=== PATIENT | male | born 1985 | race Caucasian/White ===

== ENCOUNTER 2016-01-10 09:33 | Inpatient (IN) | payer MEDICARE, MEDICAID ==
[~2016-01-10] VITALS: Ht 167.6 cm; Wt 143.9 kg
[~2016-01-10 09:33] MED LIST: ADVIL200 MG PO; FLEXERIL 1010 MG/TAB PO; FLONASEALLERGY NS; HCTZ12.5TAB PO; PRINIVIL10 MG PO; PRINIVIL2.5 MG PO
[2016-02-27] VITALS (12 sets, daily range): BP systolic 100–144; BP diastolic 53–88; PULSE 62–99; TEMP 97.4–97.8
[2016-02-27] MEDS ORDERED: HCTZ 25MG TAB25 MG PO (07:15)
[2016-02-28 02:25] VITALS: BP 133/73; PULSE 67
[2016-02-28 05:12] VITALS: BP 117/51; PULSE 66; TEMP 98.5
[2016-02-28 08:53] VITALS: BP 125/64; PULSE 72; TEMP 98.4
[2016-02-28 14:09] VITALS: BP 125/66; PULSE 64; TEMP 98.2
[2016-03-31] MEDS ORDERED: FLINTSTONES1 CTB PO (14:23)
== END 2016-02-28 17:46 | disposition home or self-care (01) | DRG 621 ==
LOC: INPTSU 02-27 05:50 → SURG 02-27 07:30 → JCC 02-27 10:25
PROVIDERS: Surgery
PROC: 0DB64Z3 Excision of Stomach, Percutaneous Endoscopic Approach, Vertical (ICD-10-PCS; 2016-02-27)
PROC: 0DV64CZ Restriction of Stomach with Extraluminal Device, Percutaneous Endoscopic Approach (ICD-10-PCS; principal; 2016-02-27 08:00)
DX: E66.01 Morbid (severe) obesity due to excess calories (principal); Z68.43 Body mass index [BMI] 50.0-59.9, adult; I10 Essential (primary) hypertension; G47.33 Obstructive sleep apnea (adult) (pediatric)
CPT/HCPCS: A9284; J0330; J0690; J1100; J1170; J1885; J2405; J2550; J2704; J2710; J3010; J7042; J7120

== ENCOUNTER 2016-02-26 03:57 | Emergency (ER) | payer MEDICARE, MEDICAID ==
[~2016-02-26] VITALS: Ht 167.6 cm; Wt 143.2 kg
[2016-02-26 04:00] VITALS: TEMP 98.8
[2016-02-26 05:08] VITALS: BP 131/64; PULSE 102
[2016-02-27] MEDS ORDERED: HCTZ 25MG TAB25 MG PO (07:15)
[2016-03-31] MEDS ORDERED: FLINTSTONES1 CTB PO (14:23)
== END 2016-02-26 05:15 | disposition home or self-care (01) ==
LOC: COL.ER 03:57
DX: M79.671 Pain in right foot (principal); I10 Essential (primary) hypertension; E66.9 Obesity, unspecified; Z68.43 Body mass index [BMI] 50.0-59.9, adult
CPT/HCPCS: J1170

== ENCOUNTER → 2016-03-03 | Outpatient (CLI) | payer MEDICARE, MEDICAID ==
[~2016-03-03] VITALS: Ht 167.6 cm; Wt 134.5 kg
[~2016-03-03] MED LIST changes: +ANECREAM15 TOP; +CLEOCIN HCL300 MG PO; +FLINTSTONES1 CTB PO; +HCTZ 25MG TAB25 MG PO; +PREDNISONE20 MG PO; +RECTIV0.4% RC
[2016-03-03 13:33] VITALS: BP 90/60; PULSE 100
[2016-03-03 14:12] VITALS: BP 90/60; PULSE 100
[2016-03-06 12:02] VITALS: BP 106/60; PULSE 100
[2016-03-10 12:12] VITALS: BP 113/64; PULSE 63
[2016-03-24 11:57] VITALS: BP 131/66; PULSE 71
== END ==
LOC: LIGHT 13:30
DX: Z98.84 Bariatric surgery status (principal); Z68.42 Body mass index [BMI] 45.0-49.9, adult

== ENCOUNTER → 2016-03-18 | Outpatient (CLI) | payer MEDICARE, MEDICAID | LOC: COL.RAD 15:31 | DX: R10.32 Left lower quadrant pain (principal) ==

== ENCOUNTER → 2016-03-31 | Outpatient (CLI) | payer MEDICARE, MEDICAID ==
[~2016-03-31] VITALS: Ht 167.6 cm; Wt 127.5 kg
[2016-03-31 14:24] VITALS: BP 132/68; PULSE 88
[2016-03-31 14:46] VITALS: BP 132/68; PULSE 88
[2016-04-07 10:50] VITALS: BP 123/70; PULSE 61
[2016-04-14 10:57] VITALS: BP 121/62; PULSE 66
== END ==
LOC: LIGHT 09:39
DX: Z98.84 Bariatric surgery status (principal); Z68.42 Body mass index [BMI] 45.0-49.9, adult

== ENCOUNTER 2016-04-20 20:07 | Emergency (ER) | payer MEDICARE, MEDICAID ==
[~2016-04-20] VITALS: Ht 167.6 cm; Wt 127.7 kg
[~2016-04-20 20:07] MED LIST changes: -ANECREAM15 TOP; -CLEOCIN HCL300 MG PO; -PREDNISONE20 MG PO; -RECTIV0.4% RC
[2016-04-20 20:09] VITALS: BP 117/70; TEMP 99
[2016-04-20 21:50] VITALS: PULSE 96
== END 2016-04-20 21:51 | disposition home or self-care (01) ==
LOC: COL.ER 20:07
DX: M79.672 Pain in left foot (principal); E66.01 Morbid (severe) obesity due to excess calories; Z68.42 Body mass index [BMI] 45.0-49.9, adult; I10 Essential (primary) hypertension

== ENCOUNTER → 2016-05-01 | Outpatient (CLI) | payer MEDICARE, MEDICAID ==
[~2016-05-01] VITALS: Ht 167.6 cm; Wt 123.6 kg
[~2016-05-01] MED LIST changes: +ANECREAM15 TOP; +CLEOCIN HCL300 MG PO; +PREDNISONE20 MG PO; +RECTIV0.4% RC
[2016-05-01 08:47] VITALS: BP 124/66; PULSE 55
[2016-05-19 13:43] VITALS: BP 112/55; PULSE 61
== END ==
LOC: LIGHT 08:40
DX: E88.81 Metabolic syndrome and other insulin resistance (principal); I10 Essential (primary) hypertension; R73.01 Impaired fasting glucose; E66.01 Morbid (severe) obesity due to excess calories; Z68.41 Body mass index [BMI] 40.0-44.9, adult

== ENCOUNTER → 2016-05-26 | Outpatient (CLI) | payer MEDICARE, MEDICAID ==
[~2016-05-26] VITALS: Ht 167.6 cm; Wt 113.9 kg
[2016-05-26 14:08] VITALS: BP 90/50; PULSE 64
[2016-06-09 10:40] VITALS: BP 133/62; PULSE 68
[2016-07-23 13:47] VITALS: BP 108/58; PULSE 64
[2016-08-19 11:53] VITALS: BP 119/62; PULSE 61
== END ==
LOC: LIGHT 14:00
DX: E88.81 Metabolic syndrome and other insulin resistance (principal); I10 Essential (primary) hypertension; E66.01 Morbid (severe) obesity due to excess calories; Z68.41 Body mass index [BMI] 40.0-44.9, adult; Z98.84 Bariatric surgery status; Z90.49 Acquired absence of other specified parts of digestive tract

== ENCOUNTER 2016-07-05 16:28 | Emergency (ER) | payer MEDICARE, MEDICAID ==
[~2016-07-05] VITALS: Ht 167.6 cm; Wt 116.4 kg
[~2016-07-05 16:28] MED LIST changes: -ANECREAM15 TOP; -CLEOCIN HCL300 MG PO; -PREDNISONE20 MG PO; -RECTIV0.4% RC
[2016-07-05 16:30] VITALS: TEMP 99.8
[2016-07-05] MEDS ORDERED: PREDNISONE20 MG PO (17:54)
[2016-07-05] MEDS ORDERED: CLEOCIN HCL300 MG PO (17:54)
[2016-07-05 18:04] VITALS: BP 120/65; PULSE 72
== END 2016-07-05 18:06 | disposition home or self-care (01) ==
LOC: COL.ER 16:28
DX: J03.90 Acute tonsillitis, unspecified (principal); H92.03 Otalgia, bilateral
CPT/HCPCS: J7512

== ENCOUNTER 2016-08-24 14:53 | Emergency (ER) | payer MEDICARE, MEDICAID ==
[~2016-08-24] VITALS: Ht 167.6 cm; Wt 114.1 kg
[~2016-08-24 14:53] MED LIST changes: +CLEOCIN HCL300 MG PO; +PREDNISONE20 MG PO
[2016-08-24 15:01] VITALS: BP 142/78; TEMP 98
[2016-08-24 15:48] LABS: BASO % 0.4 % (0.0-2.0); EOS # 0.1 (0.0-0.7); EOS % 1.8 % (0-4.0); GRAN # 3.9 (1.4-6.5); GRAN % 57.5 % (42.2-75.2); HEMATOCRIT 42.9 % (42.0-52.0); HEMOGLOBIN 14.5 g/dl (13.5-18.0); LYMPH # 2.1 (1.2-3.4); LYMPH % 31.4 % (20.0-51.0); MEAN CELL VOLUME 86 fl (80.0-100.0); MEAN CORPUSCULAR HEMOGLOBIN 29 pg (27.0-31.0); MEAN CORPUSCULAR HGB CONC 34 g/dl (33.0-37.0); MEAN PLATELET VOLUME 11.1 fl (7.4-10.4); MONO # 0.6 (0.1-0.6); MONO % 8.8 % (1.7-9.3); PLATELET COUNT 149 K/mm3 (130-400); RED BLOOD COUNT 4.97 M/mm3 (4.20-5.60); REDCELL DISTRIBUTION WIDTH-CV 15.5 % (11.5-14.5); WHITE BLOOD COUNT 6.8 K/mm3 (4.8-10.8)
[2016-08-24 16:01] LABS: ADJUSTED CALCIUM 9.3 mg/dL (8.4-10.2); ALANINE AMINOTRANSFERASE 30 U/L (21-72); ALBUMIN 3.9 gm/dL (3.5-5.0); ALKALINE PHOSPHATASE 68 U/L (50-136); ANION GAP 10 mmol/L (7-16); BILIRUBIN,TOTAL 0.6 mg/dL (0.0-1.0); BLOOD UREA NITROGEN 14 mg/dL (9-20); CALCIUM 9.2 mg/dL (8.4-10.2); CARBON DIOXIDE 27 mmol/L (22-30); CHLORIDE 102 mmol/L (98-107); GLUCOSE 100 mg/dL (74-106); POTASSIUM 3.7 mmol/L (3.4-5.0); SODIUM 139 mmol/L (137-145); TOTAL PROTEIN 7.2 gm/dL (6.4-8.2)
[2016-08-24 16:02] LABS: ACETAMINOPHEN < 10 ug/mL (10-30); SALICYLATE < 1.0 mg/dL
[2016-08-24 16:29] LABS: THYROXINE (T4)-TOTAL 6.1 ug/dL (5.5-11.0)
[2016-08-24 16:36] LABS: AMPHETAMINE URINE NEGATIVE; BARBITURATES URINE NEGATIVE; BENZODIAZEPINES URINE NEGATIVE; BUPRENORPHINE URINE NEGATIVE; METHADONE URINE NEGATIVE; OPIATES URINE NEGATIVE; OXYCODONE URINE NEGATIVE; PHENCYCLIDINE URINE NEGATIVE; PROPOXYPHENE URINE NEGATIVE; THC CANNABINOIDS URINE NEGATIVE
[2016-08-24 17:32] VITALS: PULSE 58
== END 2016-08-24 17:35 | disposition home or self-care (01) ==
LOC: COL.ER 14:53
PROVIDERS: Emergency Medicine
DX: F32.9 Major depressive disorder, single episode, unspecified (principal); I10 Essential (primary) hypertension; M19.90 Unspecified osteoarthritis, unspecified site; Z98.890 Other specified postprocedural states

== ENCOUNTER → 2016-09-01 | Outpatient (CLI) | payer MEDICARE, MEDICAID ==
[~2016-09-01] VITALS: Ht 167.6 cm; Wt 113.6 kg
[~2016-09-01] MED LIST changes: +ANECREAM15 TOP; +RECTIV0.4% RC
[2016-09-01 14:07] VITALS: BP 114/56; PULSE 60
== END ==
LOC: LIGHT 08:39
DX: E88.81 Metabolic syndrome and other insulin resistance (principal); I10 Essential (primary) hypertension; E66.01 Morbid (severe) obesity due to excess calories; Z68.41 Body mass index [BMI] 40.0-44.9, adult; Z71.3 Dietary counseling and surveillance

== ENCOUNTER 2016-09-29 21:40 | Emergency (ER) | payer OTHER, MEDICARE, MEDICAID ==
[~2016-09-29] VITALS: Ht 167.6 cm; Wt 115.0 kg
[~2016-09-29 21:40] MED LIST changes: -ANECREAM15 TOP; -RECTIV0.4% RC
[2016-09-29 21:45] VITALS: TEMP 98.6
[2016-09-30] MEDS ORDERED: FLEXERIL 1010 MG/TAB PO (00:33)
[2016-09-30 00:41] VITALS: BP 111/63; PULSE 62
== END 2016-09-30 00:43 | disposition home or self-care (01) ==
LOC: COL.ER 21:40
DX: S16.1XXA Strain of muscle, fascia and tendon at neck level, initial encounter (principal); I10 Essential (primary) hypertension; V43.52XA Car driver injured in collision with other type car in traffic accident, initial encounter

== ENCOUNTER → 2016-10-09 | Outpatient (CLI) | payer OTHER, MEDICARE, MEDICAID ==
[~2016-10-09] VITALS: Ht 167.6 cm; Wt 114.5 kg
[~2016-10-09] MED LIST changes: +ANECREAM15 TOP; +RECTIV0.4% RC
[2016-10-09 11:59] VITALS: BP 104/60; PULSE 76
[2016-11-03 12:25] VITALS: BP 134/60; PULSE 64
== END ==
LOC: LIGHT 11:45
DX: E88.81 Metabolic syndrome and other insulin resistance (principal); I10 Essential (primary) hypertension; E66.01 Morbid (severe) obesity due to excess calories; Z68.39 Body mass index [BMI] 39.0-39.9, adult; Z71.3 Dietary counseling and surveillance

== ENCOUNTER 2016-11-07 07:54 | Emergency (ER) | payer MEDICARE, MEDICAID ==
[~2016-11-07] VITALS: Ht 167.6 cm; Wt 115.0 kg
[~2016-11-07 07:54] MED LIST changes: -ANECREAM15 TOP; -RECTIV0.4% RC
[2016-11-07 07:59] VITALS: BP 125/70; PULSE 70; TEMP 98.1
[2016-11-07] MEDS ORDERED: RECTIV0.4% RC (08:57)
[2016-11-07] MEDS ORDERED: ANECREAM15 TOP (09:11)
== END 2016-11-07 09:50 | disposition home or self-care (01) ==
LOC: COL.ER 07:54
DX: K62.89 Other specified diseases of anus and rectum (principal); K60.2 Anal fissure, unspecified; Z98.84 Bariatric surgery status

== ENCOUNTER 2016-12-11 01:22 | Emergency (ER) | payer MEDICARE, MEDICAID ==
[~2016-12-11] VITALS: Ht 167.6 cm; Wt 114.5 kg
[~2016-12-11 01:22] MED LIST changes: +ANECREAM15 TOP; +RECTIV0.4% RC
[2016-12-11 01:24] VITALS: BP 124/58; TEMP 97.8
[2016-12-11] MEDS ORDERED: FLONASEALLERGY NS (01:27)
[2016-12-11 02:03] VITALS: PULSE 74
== END 2016-12-11 02:03 | disposition home or self-care (01) ==
LOC: COL.ER 01:22
DX: J06.9 Acute upper respiratory infection, unspecified (principal); I10 Essential (primary) hypertension

== ENCOUNTER → 2016-12-18 | Outpatient (CLI) | payer MEDICARE, MEDICAID ==
[~2016-12-18] VITALS: Ht 167.6 cm; Wt 114.3 kg
[~2016-12-18] MED LIST changes: +PHENTERMINE15 MG PO
[2016-12-18 13:22] VITALS: BP 104/68; PULSE 64
== END ==
LOC: LIGHT 09:54
DX: E88.81 Metabolic syndrome and other insulin resistance (principal); I10 Essential (primary) hypertension; E66.01 Morbid (severe) obesity due to excess calories; Z68.41 Body mass index [BMI] 40.0-44.9, adult; Z71.3 Dietary counseling and surveillance

== ENCOUNTER → 2017-01-22 | Outpatient (CLI) | payer MEDICARE, MEDICAID ==
[~2017-01-22] VITALS: Ht 167.6 cm; Wt 125.0 kg
[2017-01-22 10:41] VITALS: BP 110/80; PULSE 68
== END ==
LOC: LIGHT 10:35
DX: E88.81 Metabolic syndrome and other insulin resistance (principal); I10 Essential (primary) hypertension; E66.01 Morbid (severe) obesity due to excess calories; Z68.41 Body mass index [BMI] 40.0-44.9, adult; Z71.3 Dietary counseling and surveillance

== ENCOUNTER → 2017-02-02 | Outpatient (CLI) | payer MEDICARE, MEDICAID ==
[~2017-02-02] VITALS: Ht 167.6 cm; Wt 116.6 kg
[2017-02-02 14:18] VITALS: BP 126/70; PULSE 80
== END ==
LOC: LIGHT 08:58
DX: E88.81 Metabolic syndrome and other insulin resistance (principal); I10 Essential (primary) hypertension; E66.01 Morbid (severe) obesity due to excess calories; Z68.41 Body mass index [BMI] 40.0-44.9, adult; Z71.3 Dietary counseling and surveillance

== ENCOUNTER → 2017-02-19 | Outpatient (CLI) | payer MEDICARE, MEDICAID ==
[~2017-02-19] VITALS: Ht 167.6 cm; Wt 115.2 kg
[2017-02-19 13:39] VITALS: BP 110/80; PULSE 104
== END ==
LOC: LIGHT 12:42
DX: E88.81 Metabolic syndrome and other insulin resistance (principal); I10 Essential (primary) hypertension; E66.01 Morbid (severe) obesity due to excess calories; Z68.41 Body mass index [BMI] 40.0-44.9, adult; Z71.3 Dietary counseling and surveillance
CPT/HCPCS: G0463

== ENCOUNTER → 2017-08-17 | Outpatient (CLI) | payer MEDICARE, MEDICAID ==
[~2017-08-17] VITALS: Ht 167.6 cm; Wt 121.1 kg
[2017-08-17 13:02] VITALS: BP 116/70; PULSE 92
== END ==
LOC: LIGHT 13:08
DX: E88.81 Metabolic syndrome and other insulin resistance (principal); I10 Essential (primary) hypertension; E66.01 Morbid (severe) obesity due to excess calories; Z68.41 Body mass index [BMI] 40.0-44.9, adult; Z71.3 Dietary counseling and surveillance
CPT/HCPCS: G0463

== ENCOUNTER → 2017-09-24 | Outpatient (CLI) | payer MEDICARE, MEDICAID ==
[~2017-09-24] VITALS: Ht 167.6 cm; Wt 123.6 kg
[2017-09-24 13:53] VITALS: BP 130/72; PULSE 88
== END ==
LOC: LIGHT 13:26
DX: E88.81 Metabolic syndrome and other insulin resistance (principal); I10 Essential (primary) hypertension; E66.01 Morbid (severe) obesity due to excess calories; Z68.41 Body mass index [BMI] 40.0-44.9, adult; Z71.3 Dietary counseling and surveillance
CPT/HCPCS: G0463

== ENCOUNTER 2017-10-04 07:20 | Emergency (ER) | payer MEDICARE, MEDICAID ==
[~2017-10-04] VITALS: Ht 167.6 cm; Wt 118.2 kg
[2017-10-04 07:23] VITALS: BP 157/84; PULSE 69; TEMP 98.2
[2017-10-04] MEDS ORDERED: ULTRAM 50MG TAB50 MG PO (07:39)
== END 2017-10-04 07:57 | disposition home or self-care (01) ==
LOC: COL.ER 07:20
DX: K08.89 Other specified disorders of teeth and supporting structures (principal); I10 Essential (primary) hypertension; Z98.84 Bariatric surgery status; Z79.51 Long term (current) use of inhaled steroids
CPT/HCPCS: J1885

== ENCOUNTER 2017-10-10 20:51 | Emergency (ER) | payer MEDICARE, MEDICAID ==
[~2017-10-10] VITALS: Ht 167.6 cm; Wt 122.7 kg
[~2017-10-10 20:51] MED LIST changes: +ULTRAM 50MG TAB50 MG PO
[2017-10-10 20:55] VITALS: BP 153/98; TEMP 97.8
[2017-10-10] MEDS ORDERED: NORCO 325 MG-51 TAB PO (23:38)
[2017-10-10] MEDS ORDERED: AMOXICILLIN 50500 MG PO (23:38)
[2017-10-10 23:47] VITALS: PULSE 82
== END 2017-10-10 23:48 | disposition home or self-care (01) ==
LOC: COL.ER 20:51
DX: K02.9 Dental caries, unspecified (principal); I10 Essential (primary) hypertension; Z79.51 Long term (current) use of inhaled steroids

== ENCOUNTER → 2017-11-12 | Outpatient (CLI) | payer MEDICARE, MEDICAID ==
[~2017-11-12] VITALS: Ht 167.6 cm; Wt 127.7 kg
[~2017-11-12] MED LIST changes: +AMOXICILLIN 50500 MG PO; +NORCO 325 MG-51 TAB PO; +TOPAMAX 25MG25 M1 PO
[2017-11-12 15:58] VITALS: BP 124/76; PULSE 80
== END ==
LOC: LIGHT 10-29 13:20
DX: E88.81 Metabolic syndrome and other insulin resistance (principal); I10 Essential (primary) hypertension; R73.01 Impaired fasting glucose; E66.01 Morbid (severe) obesity due to excess calories; Z68.42 Body mass index [BMI] 45.0-49.9, adult; Z71.3 Dietary counseling and surveillance
CPT/HCPCS: G0463

== ENCOUNTER 2017-11-26 00:44 | Emergency (ER) | payer MEDICARE, MEDICAID ==
[~2017-11-26] VITALS: Ht 167.6 cm; Wt 122.7 kg
[2017-11-26 00:48] VITALS: BP 133/80; PULSE 77; TEMP 97.4
[2017-11-26] MEDS ORDERED: AMOXICILLIN 8751 TAB PO (01:10)
== END 2017-11-26 01:20 | disposition home or self-care (01) ==
LOC: COL.ER 00:44
DX: K08.89 Other specified disorders of teeth and supporting structures (principal)

== ENCOUNTER 2018-02-10 23:59 | Emergency (ER) | payer MEDICARE, MEDICAID ==
[~2018-02-10] VITALS: Ht 167.6 cm; Wt 131.8 kg
[~2018-02-10 23:59] MED LIST changes: +AMOXICILLIN 8751 TAB PO
[2018-02-11 00:04] VITALS: BP 142/74; PULSE 73; TEMP 97.7
[2018-02-11] MEDS ORDERED: PEN-VEE K500 MG PO (00:22)
== END 2018-02-11 00:38 | disposition home or self-care (01) ==
LOC: COL.ER 23:59
DX: K08.89 Other specified disorders of teeth and supporting structures (principal); Z98.84 Bariatric surgery status; Z79.51 Long term (current) use of inhaled steroids

== ENCOUNTER 2018-03-19 05:21 | Emergency (ER) | payer MEDICARE, MEDICAID ==
[~2018-03-19] VITALS: Ht 167.6 cm; Wt 127.3 kg
[~2018-03-19 05:21] MED LIST changes: +PEN-VEE K500 MG PO
[2018-03-19 05:26] VITALS: BP 129/74; TEMP 97.7
[2018-03-19] MEDS ORDERED: NORCO 325 MG-51 TAB PO (05:45)
[2018-03-19] MEDS ORDERED: AMOXICILLIN 50500 MG PO (05:45)
[2018-03-19 05:55] VITALS: PULSE 60
== END 2018-03-19 05:55 | disposition home or self-care (01) ==
LOC: COL.ER 05:21
DX: K08.89 Other specified disorders of teeth and supporting structures (principal); K04.7 Periapical abscess without sinus; Z79.51 Long term (current) use of inhaled steroids

== ENCOUNTER → 2018-04-22 | Emergency (ER) | payer MEDICARE, MEDICAID ==
[~2018-04-22] VITALS: Ht 15.2 cm; Wt 127.3 kg
[2018-04-22 19:35] VITALS: TEMP 98.1
[2018-04-22 21:14] VITALS: BP 155/78; PULSE 69
== END ==
LOC: COL.ER 19:30
DX: M25.562 Pain in left knee (principal); Z79.51 Long term (current) use of inhaled steroids

== ENCOUNTER → 2018-05-27 | Outpatient (CLI) | payer MEDICARE, MEDICAID ==
[~2018-05-27] VITALS: Ht 167.6 cm; Wt 136.3 kg
[~2018-05-27] MED LIST changes: +FASTIN30 MG PO; +FLINTSTONES COM1 CT1 PO; +VITAMIN C500 MG PO
[2018-05-27 16:34] VITALS: BP 134/74; PULSE 80
== END ==
LOC: LIGHT 02-18 08:50
DX: E88.81 Metabolic syndrome and other insulin resistance (principal); I10 Essential (primary) hypertension; R73.01 Impaired fasting glucose; E66.01 Morbid (severe) obesity due to excess calories; Z68.42 Body mass index [BMI] 45.0-49.9, adult; Z71.3 Dietary counseling and surveillance
CPT/HCPCS: G0463

== ENCOUNTER 2018-06-08 18:18 | Emergency (ER) | payer OTHER, MEDICARE, MEDICAID ==
[~2018-06-08] VITALS: Ht 167.6 cm; Wt 127.3 kg
[2018-06-08 18:28] VITALS: BP 126/91; TEMP 97.5
[2018-06-08] MEDS ORDERED: FLEXERIL 1010 MG/TAB PO (20:23)
[2018-06-08 21:01] VITALS: PULSE 100
== END 2018-06-08 21:00 | disposition home or self-care (01) ==
LOC: COL.ER 18:18
DX: S16.1XXA Strain of muscle, fascia and tendon at neck level, initial encounter (principal); V48.5XXA Car driver injured in noncollision transport accident in traffic accident, initial encounter

== ENCOUNTER 2018-08-22 22:48 | Emergency (ER) | payer MEDICARE, MEDICAID ==
[~2018-08-22] VITALS: Ht 167.6 cm; Wt 134.1 kg
[2018-08-22 22:56] VITALS: TEMP 98
[2018-08-23 00:06] LABS: BASO % 0.3 % (0.0-2.0); EOS # 0.1 (0.0-0.7); EOS % 0.7 % (0-4.0); GRAN # 6.1 (1.4-6.5); GRAN % 68.9 % (42.2-75.2); HEMATOCRIT 45.3 % (42.0-52.0); HEMOGLOBIN 15.2 g/dl (13.5-18.0); LYMPH # 1.8 (1.2-3.4); LYMPH % 20.6 % (20.0-51.0); MEAN CELL VOLUME 91 fl (80.0-100.0); MEAN CORPUSCULAR HEMOGLOBIN 31 pg (27.0-31.0); MEAN CORPUSCULAR HGB CONC 34 g/dl (33.0-37.0); MEAN PLATELET VOLUME 9.9 fl (7.4-10.4); MONO # 0.8 (0.1-0.6); MONO % 9.3 % (1.7-9.3); PLATELET COUNT 173 K/mm3 (130-400); RED BLOOD COUNT 4.99 M/mm3 (4.20-5.60); REDCELL DISTRIBUTION WIDTH-CV 13.4 % (11.5-14.5)
[2018-08-23 00:19] LABS: ALANINE AMINOTRANSFERASE 26 U/L (21-72); ALBUMIN 3.8 gm/dL (3.5-5.0); ALKALINE PHOSPHATASE 63 U/L (50-136); ANION GAP 9 mmol/L (7-16); AST,SGOT 21 U/L (15-37); BILIRUBIN,TOTAL 0.5 mg/dL (0.0-1.0); BLOOD UREA NITROGEN 11 mg/dL (9-20); CALCIUM 9.2 mg/dL (8.4-10.2); CARBON DIOXIDE 28 mmol/L (22-30); CHLORIDE 105 mmol/L (98-107); CREATININE, serum 0.94 (0.66-1.25); GLUCOSE 80 mg/dL (74-106); POTASSIUM 3.8 mmol/L (3.4-5.0); SODIUM 141 mmol/L (137-145)
[2018-08-23 00:30] LABS: TROPONIN-I < 0.012 ng/mL (0.000-0.035)
[2018-08-23] MEDS ORDERED: ATIVAN 0.50.5 MG/TAB PO (01:01)
[2018-08-23 01:18] VITALS: BP 114/58; PULSE 83
== END 2018-08-23 01:19 | disposition home or self-care (01) ==
LOC: COL.ER 22:48
PROVIDERS: Nurse Practitioner
DX: R07.89 Other chest pain (principal); F41.9 Anxiety disorder, unspecified; Z90.49 Acquired absence of other specified parts of digestive tract; Z79.51 Long term (current) use of inhaled steroids
CPT/HCPCS: J2060; J7030

== ENCOUNTER 2019-08-18 23:56 | Emergency (ER) | payer MEDICARE, MEDICAID ==
[~2019-08-18] VITALS: Ht 170.2 cm; Wt 144.9 kg
[~2019-08-18 23:56] MED LIST changes: +ATIVAN 0.50.5 MG/TAB PO
[2019-08-19] VITALS: BP 120/84; TEMP 98.3
[2019-08-19 00:10] LABS: COLLECTION METHOD CLEAN CATCH
[2019-08-19 00:15] LABS: MUCOUS Present /lpf; PH 6 (5-8); SQUAMOUS EPITHELIAL 0-2 /hpf; URINE APPEARANCE Clear; URINE BACTERIA None Seen /hpf; URINE BILIRUBIN Negative (NEGATIVE); URINE BLOOD Negative (NEGATIVE); URINE COLOR Yellow; URINE GLUCOSE Negative (NEGATIVE); URINE KETONE Negative (NEGATIVE); URINE LEUKOCYTE ESTERASE Negative (NEGATIVE); URINE NITRATE Negative (NEGATIVE); URINE PROTEIN(semi-quant) Negative (NEGATIVE); URINE RBC 0-2 /hpf; URINE UROBILINOGEN Negative (NEGATIVE)
[2019-08-19 00:58] LABS: BASO % 0.3 % (0.0-2.0); EOS # 0.1 (0.0-0.7); EOS % 0.9 % (0-4.0); GRAN # 6.9 (1.4-6.5); GRAN % 70.5 % (42.2-75.2); HEMATOCRIT 42.6 % (42.0-52.0); HEMOGLOBIN 13.9 g/dl (13.5-18.0); LYMPH % 20.6 % (20.0-51.0); MEAN CELL VOLUME 90 fl (80.0-100.0); MEAN CORPUSCULAR HEMOGLOBIN 29 pg (27.0-31.0); MEAN CORPUSCULAR HGB CONC 33 g/dl (33.0-37.0); MEAN PLATELET VOLUME 10.7 fl (7.4-10.4); MONO # 0.7 (0.1-0.6); MONO % 7.3 % (1.7-9.3); PLATELET COUNT 177 K/mm3 (130-400); RED BLOOD COUNT 4.76 M/mm3 (4.20-5.60)
[2019-08-19 01:08] LABS: ALBUMIN 3.9 gm/dL (3.5-5.0); BILIRUBIN,TOTAL 0.7 mg/dL (0.0-1.0); CREATININE, serum 0.84 (0.66-1.25); POTASSIUM 3.7 mmol/L (3.4-5.0); TOTAL PROTEIN 7.4 gm/dL (6.4-8.2)
[2019-08-19 01:46] VITALS: PULSE 74
[2019-08-19] MEDS ORDERED: ZOFRAN ODT4 MG PO (07:32)
[2019-08-19] MEDS ORDERED: CIPRO 500MG TA500 MG PO (07:32)
== END 2019-08-19 01:46 | disposition home or self-care (01) ==
LOC: COL.ER 23:56
PROVIDERS: Nurse Practitioner Primary Care
DX: R10.30 Lower abdominal pain, unspecified (principal); R19.7 Diarrhea, unspecified; F41.9 Anxiety disorder, unspecified; E66.9 Obesity, unspecified; Z79.51 Long term (current) use of inhaled steroids; Z68.43 Body mass index [BMI] 50.0-59.9, adult; Z90.49 Acquired absence of other specified parts of digestive tract
CPT/HCPCS: J2270; J2405; J7030

== ENCOUNTER → 2019-08-31 | Outpatient (CLI) | payer MEDICARE, MEDICAID ==
[~2019-08-31] MED LIST changes: +CIPRO 500MG TA500 MG PO; +SYNTHROID0.075 MG/T PO; +ZOFRAN ODT4 MG PO
== END ==
LOC: COL.RAD 07:46
DX: K44.9 Diaphragmatic hernia without obstruction or gangrene (principal); E66.01 Morbid (severe) obesity due to excess calories; Z98.84 Bariatric surgery status; Z98.890 Other specified postprocedural states

== ENCOUNTER → 2019-09-01 | Outpatient (CLI) | payer MEDICARE, MEDICAID, OTHER ==
[~2019-09-01] VITALS: Ht 170.2 cm; Wt 144.0 kg
[2019-09-01 11:51] VITALS: BP 130/80; PULSE 80
== END ==
LOC: LIGHT
DX: E66.01 Morbid (severe) obesity due to excess calories (principal); Z68.42 Body mass index [BMI] 45.0-49.9, adult; E88.81 Metabolic syndrome and other insulin resistance; R73.01 Impaired fasting glucose; I10 Essential (primary) hypertension; Z98.84 Bariatric surgery status
CPT/HCPCS: G0463

== ENCOUNTER 2019-11-05 21:37 | Emergency (ER) | payer MEDICARE, MEDICAID ==
[~2019-11-05] VITALS: Ht 167.6 cm; Wt 145.5 kg
[2019-11-05 21:46] VITALS: TEMP 99.6
[2019-11-05 22:16] LABS: COLLECTION METHOD CLEAN CATCH
[2019-11-05 22:23] LABS: PH 5 (5-8); SQUAMOUS EPITHELIAL 0-2 /hpf; URINE APPEARANCE Clear; URINE BACTERIA None Seen /hpf; URINE BILIRUBIN Negative (NEGATIVE); URINE BLOOD 1+ (NEGATIVE); URINE COLOR Yellow; URINE GLUCOSE Negative (NEGATIVE); URINE KETONE Negative (NEGATIVE); URINE LEUKOCYTE ESTERASE Negative (NEGATIVE); URINE NITRATE Negative (NEGATIVE); URINE PROTEIN(semi-quant) Negative (NEGATIVE); URINE UROBILINOGEN >=4.0 mg/dL (NEGATIVE)
[2019-11-05 22:24] LABS: BASO % 0.3 % (0.0-2.0); EOS # 0.1 (0.0-0.7); EOS % 1.1 % (0-4.0); GRAN # 6.4 (1.4-6.5); GRAN % 71.1 % (42.2-75.2); HEMATOCRIT 44.8 % (42.0-52.0); HEMOGLOBIN 14.9 g/dl (13.5-18.0); LYMPH # 1.6 (1.2-3.4); LYMPH % 18.1 % (20.0-51.0); MEAN CELL VOLUME 88 fl (80.0-100.0); MEAN CORPUSCULAR HEMOGLOBIN 29 pg (27.0-31.0); MEAN CORPUSCULAR HGB CONC 33 g/dl (33.0-37.0); MEAN PLATELET VOLUME 10.1 fl (7.4-10.4); MONO # 0.8 (0.1-0.6); MONO % 9.1 % (1.7-9.3); PLATELET COUNT 175 K/mm3 (130-400); RED BLOOD COUNT 5.12 M/mm3 (4.20-5.60); REDCELL DISTRIBUTION WIDTH-CV 13.4 % (11.5-14.5)
[2019-11-05 22:36] LABS: ALBUMIN 4.3 gm/dL (3.5-5.0); BILIRUBIN,TOTAL 0.6 mg/dL (0.0-1.0); C-REACTIVE PROTEIN 4.9 mg/dL (0.0-0.9); CALCIUM 9.1 mg/dL (8.4-10.2); CREATININE, serum 1.03 (0.66-1.25)
[2019-11-06] MEDS ORDERED: ZOFRAN 4MG T4 MG/TAB PO (00:08)
[2019-11-06] MEDS ORDERED: COLACE 100100 MG/CAP PO (00:08)
[2019-11-06] MEDS ORDERED: AMOXICILLIN 8751 TAB PO (00:08)
[2019-11-06] MEDS ORDERED: NORCO 325 MG-51 TAB PO (00:08)
[2019-11-06 00:41] VITALS: BP 128/94; PULSE 87
== END 2019-11-06 00:43 | disposition home or self-care (01) ==
LOC: COL.ER 21:37
PROVIDERS: Family Medicine
DX: K57.92 Diverticulitis of intestine, part unspecified, without perforation or abscess without bleeding (principal); Z98.84 Bariatric surgery status
CPT/HCPCS: J2405; J7120; Q9967

== ENCOUNTER → 2020-03-09 | Outpatient (CLI) | payer MEDICAID, MEDICARE ==
[~2020-03-09] VITALS: Ht 167.6 cm; Wt 147.4 kg
[~2020-03-09] MED LIST changes: +COLACE 100100 MG/CAP PO; +ZOFRAN 4MG T4 MG/TAB PO
== END ==
LOC: DIET.TELE 15:45
DX: Z71.3 Dietary counseling and surveillance (principal)

== ENCOUNTER 2020-07-29 02:16 | Emergency (ER) | payer MEDICARE, MEDICAID ==
[~2020-07-29] VITALS: Ht 167.6 cm; Wt 129.5 kg
[2020-07-29 02:29] VITALS: TEMP 97.5
[2020-07-29] MEDS ORDERED: CLEOCIN HCL300 MG PO (02:58)
[2020-07-29] MEDS ORDERED: NORCO 325 MG-51 TAB PO (02:58)
[2020-07-29 03:02] VITALS: BP 128/88; PULSE 71
== END 2020-07-29 03:02 | disposition home or self-care (01) ==
LOC: COL.ER 02:16
DX: K03.81 Cracked tooth (principal); K02.9 Dental caries, unspecified; K04.7 Periapical abscess without sinus; Z88.6 Allergy status to analgesic agent

== ENCOUNTER 2020-08-06 20:33 | Emergency (ER) | payer OTHER ==
[~2020-08-06] VITALS: Ht 167.6 cm; Wt 129.5 kg
[2020-08-06 21:46] VITALS: BP 141/84; PULSE 74; TEMP 98
== END 2020-08-06 21:46 | disposition home or self-care (01) ==
LOC: COL.ER 20:33
DX: S93.601A Unspecified sprain of right foot, initial encounter (principal); W23.1XXA Caught, crushed, jammed, or pinched between stationary objects, initial encounter; Y92.831 Amusement park as the place of occurrence of the external cause; Y99.0 Civilian activity done for income or pay

== ENCOUNTER 2020-09-02 23:52 | Emergency (ER) | payer OTHER ==
[~2020-09-02] VITALS: Ht 167.6 cm; Wt 126.4 kg
[2020-09-03 00:16] VITALS: TEMP 97.5
[2020-09-03 01:20] VITALS: BP 128/62; PULSE 76
== END 2020-09-03 01:24 | disposition home or self-care (01) ==
LOC: COL.ER 23:52
DX: S43.401A Unspecified sprain of right shoulder joint, initial encounter (principal); M25.811 Other specified joint disorders, right shoulder; X50.1XXA Overexertion from prolonged static or awkward postures, initial encounter; Y99.0 Civilian activity done for income or pay

== ENCOUNTER 2020-09-16 10:22 | Emergency (ER) | payer OTHER ==
[~2020-09-16] VITALS: Ht 167.6 cm; Wt 126.8 kg
[2020-09-16] MEDS ORDERED: ULTRAM 50MG TAB50 MG PO (11:59)
[2020-09-16 13:21] VITALS: BP 134/78; PULSE 88; TEMP 97.7
== END 2020-09-16 13:00 | disposition home or self-care (01) ==
LOC: COL.ER 10:22
DX: M79.671 Pain in right foot (principal); E03.9 Hypothyroidism, unspecified; E66.9 Obesity, unspecified; Z88.6 Allergy status to analgesic agent; Z98.84 Bariatric surgery status; Z79.890 Hormone replacement therapy; Z87.828 Personal history of other (healed) physical injury and trauma
CPT/HCPCS: J1885

== ENCOUNTER 2021-02-26 16:55 | Emergency (ER) | payer MEDICARE, MEDICAID ==
[~2021-02-26] VITALS: Ht 167.6 cm; Wt 120.5 kg
[2021-02-26 18:09] VITALS: TEMP 98.5
[2021-02-26 21:03] VITALS: BP 136/79; PULSE 85
== END 2021-02-26 21:03 | disposition home or self-care (01) ==
LOC: COL.ER 16:55
DX: M25.571 Pain in right ankle and joints of right foot (principal)

== ENCOUNTER → 2021-02-27 | Outpatient (CLI) | payer OTHER, MEDICARE, MEDICAID | LOC: COL.RAD 09:00 | DX: S46.011A Strain of muscle(s) and tendon(s) of the rotator cuff of right shoulder, initial encounter (principal) | CPT/HCPCS: A9585; Q9967 ==

== ENCOUNTER 2021-04-13 00:56 | Emergency (ER) | payer MEDICARE, MEDICAID ==
[~2021-04-13] VITALS: Ht 167.6 cm; Wt 120.5 kg
[2021-04-13 01:10] VITALS: BP 127/79; PULSE 66; TEMP 97.9
[2021-04-13] MEDS ORDERED: NORCO 325 MG-51 TAB PO (01:30)
[2021-04-13] MEDS ORDERED: AMOXICILLIN 50500 MG PO (01:30)
== END 2021-04-13 01:45 | disposition home or self-care (01) ==
LOC: COL.ER 00:56
DX: K02.9 Dental caries, unspecified (principal); E03.9 Hypothyroidism, unspecified; Z79.890 Hormone replacement therapy

== ENCOUNTER 2021-05-10 00:52 | Emergency (ER) | payer MEDICARE, MEDICAID ==
[2021-05-10 01:00] VITALS: TEMP 97.8
[2021-05-10] MEDS ORDERED: NORCO 325 MG-51 TAB PO (01:13)
[2021-05-10 01:23] VITALS: BP 120/78; PULSE 64
== END 2021-05-10 01:23 | disposition home or self-care (01) ==
LOC: COL.ER 00:52
DX: K08.89 Other specified disorders of teeth and supporting structures (principal); Z98.818 Other dental procedure status

== ENCOUNTER 2022-05-20 21:25 | Emergency (ER) | payer OTHER, MEDICARE, MEDICAID ==
[~2022-05-20] VITALS: Ht 167.6 cm; Wt 122.3 kg
[~2022-05-20 21:25] MED LIST changes: +ATARAX50 MG PO; +PREDNISONE10 MG PO
[2022-05-20 21:30] VITALS: TEMP 98.4
[2022-05-20 22:20] LABS: BASO % 0.6 % (0.0-2.0); EOS # 0.1 K/mm3 (0.0-0.7); EOS % 1.9 % (0.0-4.0); GRAN # 2.4 K/mm3 (1.4-6.5); HEMATOCRIT 39.5 % (42.0-52.0); HEMOGLOBIN 13.6 g/dl (13.5-18.0); LYMPH # 1.4 K/mm3 (1.2-3.4); LYMPH % 30.7 % (20.0-51.0); MEAN CELL VOLUME 88 fl (80.0-100.0); MEAN CORPUSCULAR HEMOGLOBIN 30 pg (27-31); MEAN CORPUSCULAR HGB CONC 34 g/dl (33.0-37.0); MEAN PLATELET VOLUME 10.4 fl (7.4-10.4); MONO # 0.7 K/mm3 (0.1-0.6); MONO % 14.6 % (1.7-9.3); PLATELET COUNT 154 K/mm3 (130-400); REDCELL DISTRIBUTION WIDTH-CV 13.4 % (11.5-14.5)
[2022-05-20 22:40] LABS: ALBUMIN 3.6 gm/dL (3.5-5.0); BILIRUBIN,TOTAL 0.5 mg/dL (0.2-1.2); CALCIUM 8.5 mg/dL (8.4-10.2); CREATININE, serum 0.79 mg/dL (0.72-1.25); POTASSIUM 3.4 mmol/L (3.5-4.5)
[2022-05-20 23:21] VITALS: BP 119/74
[2022-05-21] MEDS ORDERED: FLEXERIL 1010 MG/TAB PO (00:17)
[2022-05-21 00:22] VITALS: PULSE 69
== END 2022-05-21 00:29 | disposition home or self-care (01) ==
LOC: COL.ER 21:25
PROVIDERS: Emergency Medicine
DX: S27.321A Contusion of lung, unilateral, initial encounter (principal); S60.212A Contusion of left wrist, initial encounter; S30.1XXA Contusion of abdominal wall, initial encounter; S10.93XA Contusion of unspecified part of neck, initial encounter; V43.52XA Car driver injured in collision with other type car in traffic accident, initial encounter; Y92.410 Unspecified street and highway as the place of occurrence of the external cause
CPT/HCPCS: J3360; J7120; Q9967

== ENCOUNTER 2023-08-13 22:39 | Emergency (ER) | payer OTHER, MEDICAID ==
[~2023-08-13] VITALS: Ht 167.6 cm; Wt 118.6 kg
[2023-08-13 22:48] VITALS: TEMP 97.4
[2023-08-14] MEDS ORDERED: ZANAFLEX CAPSULE4 MG PO (00:30)
[2023-08-14 00:39] VITALS: BP 124/70; PULSE 88
== END 2023-08-14 00:41 | disposition home or self-care (01) ==
LOC: COL.ER 22:39
DX: S16.1XXA Strain of muscle, fascia and tendon at neck level, initial encounter (principal); V89.2XXA Person injured in unspecified motor-vehicle accident, traffic, initial encounter; Y92.410 Unspecified street and highway as the place of occurrence of the external cause

== ENCOUNTER 2023-09-04 01:16 | Emergency (ER) | payer MEDICARE, MEDICAID ==
[~2023-09-04] VITALS: Ht 167.6 cm; Wt 122.3 kg
[~2023-09-04 01:16] MED LIST changes: +ZANAFLEX CAPSULE4 MG PO
[2023-09-04 01:21] VITALS: BP 134/92; PULSE 83; TEMP 98.6
[2023-09-04] MEDS ORDERED: Home HYDROcodone/Acetaminophen 5/325 MG #4 TABS/PACK PO ONE (01:45)
[2023-09-04] MEDS ORDERED: NARCAN4 MG NS (01:54)
== END 2023-09-04 01:57 | disposition home or self-care (01) ==
LOC: COL.ER 01:16
DX: M25.512 Pain in left shoulder (principal)

== ENCOUNTER 2023-12-25 04:43 | Emergency (ER) | payer MEDICARE, MEDICAID ==
[~2023-12-25] VITALS: Ht 170.2 cm; Wt 122.7 kg
[~2023-12-25 04:43] MED LIST changes: +NARCAN4 MG NS
[2023-12-25 04:50] VITALS: TEMP 98.6
[2023-12-25] MEDS ORDERED: Acetaminophen 500 MG TAB PO ONE (05:15)
[2023-12-25] MEDS ORDERED: Cyclobenzaprine 10 MG TAB PO ONE (05:15)
[2023-12-25] MEDS ORDERED: FLEXERIL 1010 MG/TAB PO (05:49)
[2023-12-25 06:00] VITALS: BP 125/72; PULSE 80
== END 2023-12-25 06:00 | disposition home or self-care (01) ==
LOC: COL.ER 04:43
DX: S16.1XXA Strain of muscle, fascia and tendon at neck level, initial encounter (principal); S63.501A Unspecified sprain of right wrist, initial encounter; S93.504A Unspecified sprain of right lesser toe(s), initial encounter; E66.01 Morbid (severe) obesity due to excess calories; Z68.41 Body mass index [BMI] 40.0-44.9, adult; V89.2XXA Person injured in unspecified motor-vehicle accident, traffic, initial encounter; Y92.410 Unspecified street and highway as the place of occurrence of the external cause